=== PATIENT | female | born 1965 | race Caucasian/White ===

== ENCOUNTER 2017-04-19 09:11 | Emergency (ER) | payer SELFPAY ==
[~2017-04-19] VITALS: Ht 175.3 cm; Wt 77.0 kg
[2017-04-19] MEDS ORDERED: SODIUM CHLORIDE FLUSH 10ML SYR IVF ONE (12:00)
[2017-04-19] MEDS ORDERED: SODIUM CHLORIDE 0.9% 1,000ML IVBOLUS ONE (12:00)
[2017-04-19] MEDS ORDERED: ONDANSETRON 2MG/ML, 2ML IVPush ONE (12:00)
[2017-04-19] MEDS ORDERED: ONDANSETRON 2MG/ML, 2ML ONE (12:01)
[2017-04-19 12:39] LABS: BLOOD UREA NITROGEN 7 mg/dL (7-18)
[2017-04-19 12:43] LABS: ASPARTATE AMINO TRANSFERASE 24 U/L (15-37)
[2017-04-19 13:38] VITALS: BP 142/82
== END 2017-04-19 13:42 | disposition home or self-care (01) ==
LOC: ED 13:15
DX: K52.9 Noninfective gastroenteritis and colitis, unspecified (principal); R05 Cough; E11.9 Type 2 diabetes mellitus without complications
CPT/HCPCS: 36415; 71010; 80053; 81003; 83605; 84145; 85025; 93005; 96374; 99285; J2405; J7030

== ENCOUNTER 2017-04-25 01:20 | Emergency (ER) | payer SELFPAY ==
[~2017-04-25] VITALS: Ht 175.3 cm; Wt 79.2 kg
[2017-04-25] MEDS ORDERED: IBUPROFEN 200 MG TABLET ONE (01:54)
[2017-04-25] MEDS ORDERED: CEFAZOLIN 1,000 MG ONE (01:54)
[2017-04-25] MEDS ORDERED: CEFAZOLIN 1,000 MG IM ONE (02:00)
[2017-04-25] MEDS ORDERED: IBUPROFEN 200 MG TABLET PO ONE (02:00)
[2017-04-25 02:21] VITALS: BP 94/64
== END 2017-04-25 02:37 | disposition home or self-care (01) ==
LOC: ED 02:36
DX: T63.301A Toxic effect of unspecified spider venom, accidental (unintentional), initial encounter (principal); E11.9 Type 2 diabetes mellitus without complications; Z90.710 Acquired absence of both cervix and uterus; Z90.49 Acquired absence of other specified parts of digestive tract; Y92.89 Other specified places as the place of occurrence of the external cause
CPT/HCPCS: 96372; 99283; J0690

== ENCOUNTER 2017-10-22 13:33 | Emergency (ER) | payer OTHER ==
[~2017-10-22] VITALS: Ht 175.3 cm; Wt 79.0 kg
[2017-10-22 13:40] VITALS: BP 115/84
[2017-10-22] MEDS ORDERED: HYDROcodone/APAP 5/325 TABLET ONE (13:59)
[2017-10-22] MEDS ORDERED: LORazepam 1MG TABLET ONE (13:59)
[2017-10-22] MEDS ORDERED: LORazepam 1MG TABLET PO ONE (14:00)
[2017-10-22] MEDS ORDERED: HYDROcodone/APAP 5/325 TABLET PO ONE (14:00)
[2017-10-22] MEDS ORDERED: PLEASE ENTER HEIGHT AND WEIGHT MC SCH (14:00)
== END 2017-10-22 14:34 | disposition home or self-care (01) ==
LOC: ED 14:00
DX: F41.1 Generalized anxiety disorder (principal); F32.9 Major depressive disorder, single episode, unspecified; Z59.0 Homelessness
CPT/HCPCS: 99284

== ENCOUNTER 2018-02-15 10:12 | Emergency (ER) | payer SELFPAY ==
[~2018-02-15] VITALS: Ht 154.9 cm; Wt 62.1 kg
[2018-02-15 10:16] VITALS: BP 118/78
[2018-02-15] MEDS ORDERED: DEXAMETHASONE 4 MG/ML, 1ML PO ONE (11:00)
[2018-02-15] MEDS ORDERED: DEXAMETHASONE 4 MG/ML, 5ML ONE (11:18)
== END 2018-02-15 12:09 | disposition home or self-care (01) ==
LOC: ED 11:41
DX: J02.0 Streptococcal pharyngitis (principal); K02.9 Dental caries, unspecified; F17.200 Nicotine dependence, unspecified, uncomplicated; E11.9 Type 2 diabetes mellitus without complications; Z90.49 Acquired absence of other specified parts of digestive tract
CPT/HCPCS: 82962; 99283; J1100